=== PATIENT | female | born 1960 | race African-American/Black ===

== ENCOUNTER → 2023-06-03 | Outpatient (CLI) | payer MEDICAID, SELFPAY ==
--- NOTE | 2023-06-03 12:17 | CT_ITS ---
STUDY: LOW DOSE CT LUNG CANCER SCREENING REASON FOR EXAM: Female, 62 years old. Lung cancer screening -- and gt;20 pk yr hx; current smoker; asymptomatic RADIATION DOSAGE (If Supplied By Facility): CTDIvol = ( 4.02 ) mGy, DLP = ( 135.92 ) mGycm TECHNIQUE: No contrast was administered. Low dose technique was utilized (average mAS-38 and kVp 120). 1.25 mm axial source images with a slice interval of 1.25-mm were reconstructed in lung windows. 2.5 mm axial source images with a slice interval of 2.5-mm were reconstructed in lung windows. 5.0 mm axial source images with a slice interval of 5.0-mm were reconstructed in soft tissue windows. Nodule measured using lung windows on PACS and/or independent workstation with automated measurement of minimum and maximum diameter. Nodule measurement reported as average diameter rounded to the nearest whole number. Growth is defined as an increase ins size of greater than 1.5 mm. COMPARISON: None. FINDINGS: Total lung nodules (excluding granulomas): None Emphysema: Mild Endobronchial lesion: None Aorta: No aneurysmal dilatation There are mild and diffuse interstitial fibrotic changes of the lungs. Interstitial scarring is present randomly in both lungs. No nodules or spiculation is present. There is no demonstrated pleural abnormality. Normal heart and pericardium. There are no demonstrated calcifications of the coronary arteries. Mild mitral valve calcifications are present. Normal mediastinum. Normal hilar regions. Normal unenhanced pulmonary arteries. There is atherosclerotic calcification of the aortic arch with tortuosity and elongation of the aortic arch and descending thoracic aorta. There are multi-level degenerative changes of the thoracic spine. There is no demonstrated abnormality of the visualized upper abdomen. CT/Low Dose CT Lung Screening IMPRESSION: 1. Mild emphysematous changes and interstitial scarring of both lungs. 2. Lung-RADS category 0 - Additional lung cancer screening CT images and/or comparison to prior chest CT examination is needed. IMPORTANT NOTES FOR USE: ACR Lung-RADS Version 1.0 Assessment Categories Release Date: November 08, 2013 Category: Coded 0-4 bases on nodule(s) with highest degree of suspicion. Negative screen is defined as categories 1 and 2; a positive screen is defined as categories 3 and 4. Category 3 and 4A nodules that are unchanged on interval CT should be coded as category 2, and individuals returned to screening in 12 months. Category 4X: Category 3 or 4 nodules with additional imaging findings that increase the suspicion of lung cancer, such as spiculation, GGN that doubles in size in 1 year, enlarged lymph notes, etc. Category Modifiers: S (significant finding unrelated to lung cancer) and C (prior history of treated lung cancer) may be added to the 0-4 Lung-RADS Electronically Signed: Jonnie Rehman MD at 15:03 EST Reading Location ID and State: [address] [place] [address] , Service support ,
== END | disposition home or self-care (01) ==
LOC: CT 12:16
PROVIDERS: PCP Internal Medicine; Referring Provider Nurse Practitioner Family; Visit Provider Nurse Practitioner Family
DX: Z87.891 Personal history of nicotine dependence (principal); Z12.2 Encounter for screening for malignant neoplasm of respiratory organs
CPT/HCPCS: 71271